=== PATIENT | male | born 1935 ===

== ENCOUNTER 2016-11-30 11:25 | Outpatient (CLI) | payer MEDICARE ==
--- NOTE | 2016-11-30 12:24 | XRay Report ---
Chest 2 views: Compared to 08/07/14. History: COPD. Findings: Normal cardiomediastinal silhouette. Trachea is midline evidence of COPD. No acute consolidation or mass. Impression: COPD. No acute lung changes.
== END 2016-11-30 11:26 | disposition home or self-care (01) ==
LOC: SPVIMAG 11:25
PROVIDERS: ATTEND Internal Medicine
DX: J44.1 Chronic obstructive pulmonary disease with (acute) exacerbation (principal)
CPT/HCPCS: 71020